=== PATIENT | male | born 1930 | race Caucasian/White ===

== ENCOUNTER 2019-07-29 15:12 | Inpatient (IN) | payer MEDICARE, MEDICAID ==
[2019-07-29] MEDS ORDERED: TYLENOL 325MG325 MG PO (16:16)
[2019-07-29] MEDS ORDERED: COLACE 100100 MG/CAP PO (16:18)
[2019-07-29] MEDS ORDERED: DITROPAN XL10 MG PO (16:19)
[2019-07-29] MEDS ORDERED: LEXAPRO 10MG10 MG PO (16:19)
[2019-07-29] MEDS ORDERED: B-121000 MCG PO (16:20)
[2019-07-29] MEDS ORDERED: VITAMIN D31000 I1 PO (16:21)
[2019-07-29 17:53] LABS: MUCOUS Present /lpf; PH 6 (5-8); SQUAMOUS EPITHELIAL 0-2 /hpf; URINE APPEARANCE Clear; URINE BACTERIA None Seen /hpf; URINE BILIRUBIN Negative (NEGATIVE); URINE BLOOD 1+ (NEGATIVE); URINE COLOR Yellow; URINE GLUCOSE Negative (NEGATIVE); URINE KETONE Trace (NEGATIVE); URINE LEUKOCYTE ESTERASE Negative (NEGATIVE); URINE NITRATE Negative (NEGATIVE); URINE PROTEIN(semi-quant) 1+ (NEGATIVE); URINE RBC 20-50 /hpf; URINE UROBILINOGEN >=4.0 mg/dL (NEGATIVE)
[2019-07-29 18:11] VITALS: BP 136/57; PULSE 85; TEMP 99.1
[2019-07-29 19:53] VITALS: BP 137/63; PULSE 96; TEMP 98.6
[2019-07-29 21:36] LABS: COLLECTION METHOD CLEAN CATCH
[2019-07-30] VITALS (15 sets, daily range): BP systolic 94–144; BP diastolic 48–94; PULSE 66–778; TEMP 97.7–98.9
[2019-07-30 08:20] LABS: INR 1.1 (0.8-3.0); PROTHROMBIN TIME 12.4 SECONDS (9.7-12.8)
[2019-07-30 08:25] LABS: ALBUMIN 3.3 gm/dL (3.5-5.0); BILIRUBIN,TOTAL 0.6 mg/dL (0.0-1.0); CALCIUM 8.4 mg/dL (8.4-10.2); CREATININE, serum 0.8 (0.66-1.25); POTASSIUM 3.8 mmol/L (3.4-5.0)
[2019-07-30 08:53] LABS: BASO % 0.2 % (0.0-2.0); GRAN # 10.7 (1.4-6.5); GRAN % 84.8 % (42.2-75.2); HEMATOCRIT 38.3 % (42.0-52.0); HEMOGLOBIN 12.4 g/dl (13.5-18.0); LYMPH # 0.7 (1.2-3.4); LYMPH % 5.2 % (20.0-51.0); MEAN CELL VOLUME 97 fl (80.0-100.0); MEAN CORPUSCULAR HEMOGLOBIN 31 pg (27.0-31.0); MEAN CORPUSCULAR HGB CONC 32 g/dl (33.0-37.0); MEAN PLATELET VOLUME 11.4 fl (7.4-10.4); MONO # 1.2 (0.1-0.6); MONO % 9.3 % (1.7-9.3); PLATELET COUNT 161 K/mm3 (130-400); RED BLOOD COUNT 3.95 M/mm3 (4.20-5.60); REDCELL DISTRIBUTION WIDTH-CV 12.7 % (11.5-14.5)
[2019-07-31 03:10] VITALS: BP 111/51; PULSE 74; TEMP 98.6
[2019-07-31 07:01] LABS: HEMOGLOBIN 11.5 g/dl (13.5-18.0)
[2019-07-31 07:43] VITALS: BP 121/52; PULSE 66; TEMP 97.5
[2019-07-31 12:13] VITALS: BP 95/52; PULSE 75; TEMP 97.9
[2019-07-31 13:46] LABS: BASO % 0.2 % (0.0-2.0); EOS # 0.1 (0.0-0.7); EOS % 0.7 % (0-4.0); GRAN # 11.3 (1.4-6.5); HEMATOCRIT 37.2 % (42.0-52.0); HEMOGLOBIN 11.6 g/dl (13.5-18.0); LYMPH # 0.8 (1.2-3.4); LYMPH % 6.1 % (20.0-51.0); MEAN CORPUSCULAR HEMOGLOBIN 32 pg (27.0-31.0); MEAN CORPUSCULAR HGB CONC 31 g/dl (33.0-37.0); MEAN PLATELET VOLUME 12.2 fl (7.4-10.4); MONO # 1.1 (0.1-0.6); MONO % 8.5 % (1.7-9.3); PLATELET COUNT 126 K/mm3 (130-400); RED BLOOD COUNT 3.66 M/mm3 (4.20-5.60); REDCELL DISTRIBUTION WIDTH-CV 13.2 % (11.5-14.5)
[2019-07-31 13:49] LABS: MEAN CELL VOLUME 102 fl (80.0-100.0)
[2019-07-31 16:03] VITALS: BP 120/55; PULSE 67; TEMP 97.4
[2019-07-31 20:16] LABS: AMORPHOUS CRYSTAL Present /uL; MUCOUS Present /lpf; PH 5 (5-8); SQUAMOUS EPITHELIAL None Seen /hpf; URINE APPEARANCE Cloudy; URINE BACTERIA Occasional /hpf; URINE BILIRUBIN Negative (NEGATIVE); URINE BLOOD 3+ (NEGATIVE); URINE COLOR Amber; URINE GLUCOSE Negative (NEGATIVE); URINE KETONE Negative (NEGATIVE); URINE LEUKOCYTE ESTERASE Trace (NEGATIVE); URINE NITRATE Negative (NEGATIVE); URINE PROTEIN(semi-quant) 2+ (NEGATIVE); URINE RBC >50 /hpf; URINE UROBILINOGEN Negative (NEGATIVE)
[2019-07-31 20:57] VITALS: BP 123/55; PULSE 70; TEMP 98.1
[2019-07-31 21:21] LABS: COLLECTION METHOD CLEAN CATCH
[2019-08-01 00:40] VITALS: BP 133/60; PULSE 79; TEMP 98.4
[2019-08-01 03:30] VITALS: BP 129/58; PULSE 82; TEMP 98.5
[2019-08-01 07:08] LABS: BASO % 0.4 % (0.0-2.0); EOS # 0.3 (0.0-0.7); EOS % 2.9 % (0-4.0); GRAN # 8.8 (1.4-6.5); GRAN % 81.2 % (42.2-75.2); HEMOGLOBIN 11.5 g/dl (13.5-18.0); LYMPH # 0.8 (1.2-3.4); LYMPH % 7.8 % (20.0-51.0); MEAN CELL VOLUME 100 fl (80.0-100.0); MEAN CORPUSCULAR HEMOGLOBIN 31 pg (27.0-31.0); MEAN CORPUSCULAR HGB CONC 32 g/dl (33.0-37.0); MONO # 0.8 (0.1-0.6); MONO % 7.3 % (1.7-9.3); PLATELET COUNT 120 K/mm3 (130-400); RED BLOOD COUNT 3.66 M/mm3 (4.20-5.60); REDCELL DISTRIBUTION WIDTH-CV 13.1 % (11.5-14.5)
[2019-08-01 07:20] LABS: HEMATOCRIT 36.4 % (42.0-52.0)
[2019-08-01 07:31] LABS: CALCIUM 8.1 mg/dL (8.4-10.2); CREATININE, serum 0.77 (0.66-1.25); POTASSIUM 3.5 mmol/L (3.4-5.0)
[2019-08-01 08:13] VITALS: BP 152/72; PULSE 94; TEMP 98
[2019-08-01 11:54] VITALS: BP 151/56; PULSE 78; TEMP 98
[2019-08-01 16:04] VITALS: BP 161/64; PULSE 89; TEMP 98
[2019-08-01 19:48] VITALS: BP 131/86; PULSE 82; TEMP 98.9
[2019-08-02 04:22] VITALS: BP 127/50; PULSE 92; TEMP 98.3
[2019-08-02 07:57] VITALS: BP 135/48; PULSE 84; TEMP 98
[2019-08-02 12:11] VITALS: BP 131/53; PULSE 75; TEMP 99.5
[2019-08-02 12:35] LABS: HEMATOCRIT 36.6 % (42.0-52.0); HEMOGLOBIN 11.7 g/dl (13.5-18.0); MEAN CELL VOLUME 98 fl (80.0-100.0); MEAN CORPUSCULAR HEMOGLOBIN 32 pg (27.0-31.0); MEAN CORPUSCULAR HGB CONC 32 g/dl (33.0-37.0); MEAN PLATELET VOLUME 11.5 fl (7.4-10.4); PLATELET COUNT 152 K/mm3 (130-400); RED BLOOD COUNT 3.72 M/mm3 (4.20-5.60); REDCELL DISTRIBUTION WIDTH-CV 12.6 % (11.5-14.5)
[2019-08-02 12:45] LABS: CALCIUM 8.3 mg/dL (8.4-10.2); CREATININE, serum 0.81 (0.66-1.25)
[2019-08-02 13:09] LABS: BAND 8 % (0-10); EOSINOPHIL 1 % (0-4); NEUTROPHILS 75 % (42.0-75.2)
[2019-08-02 13:10] LABS: PLATELET ESTIMATE NORMAL (NORMAL)
[2019-08-02 13:11] LABS: LYMPHOCYTE 11 % (20.0-51.0)
[2019-08-02 17:31] VITALS: BP 144/74; PULSE 70; TEMP 97.4
[2019-08-02 19:37] VITALS: BP 148/94; PULSE 80; TEMP 99.4
[2019-08-02 23:20] VITALS: BP 124/55; PULSE 76; TEMP 99.3
[2019-08-03 03:32] VITALS: BP 152/59; PULSE 70; TEMP 98
[2019-08-03 11:56] VITALS: BP 152/59; PULSE 70; TEMP 98
[2019-08-03] MEDS ORDERED: ASPIRIN 32325 MG/TAB PO (12:35)
[2019-08-03] MEDS ORDERED: NORCO 325 MG-51 TAB PO (12:36)
[2019-08-03] MEDS ORDERED: SENOKOT S 50 MG1 TAB PO (12:37)
== END 2019-08-03 13:05 | DRG 469 ==
LOC: SURG 15:12
PROVIDERS: Orthopaedic Surgery Sports Medicine; Physician Assistant; Student in an Organized Health Care Education/Training Program; ADMIT Internal Medicine
PROC: 0SR90J9 Replacement of Right Hip Joint with Synthetic Substitute, Cemented, Open Approach (ICD-10-PCS; principal; 2019-07-30 15:00)
DX: S72.001A Fracture of unspecified part of neck of right femur, initial encounter for closed fracture (principal); J15.9 Unspecified bacterial pneumonia; N39.0 Urinary tract infection, site not specified; W01.0XXA Fall on same level from slipping, tripping and stumbling without subsequent striking against object, initial encounter; F79 Unspecified intellectual disabilities; I10 Essential (primary) hypertension; K44.9 Diaphragmatic hernia without obstruction or gangrene; D69.6 Thrombocytopenia, unspecified; E55.9 Vitamin D deficiency, unspecified; Y93.89 Activity, other specified; Y92.129 Unspecified place in nursing home as the place of occurrence of the external cause
CPT/HCPCS: 99222-AI; 99231-AI; 99232-AI; 99233-AI; 99239; A4216; A9284; C1776; J0456; J0690; J0696; J2250; J2270; J2370; J2704; J3010; J7030; J7050; J7121